=== PATIENT | male | born 1985 | race Caucasian/White ===

== ENCOUNTER 2020-10-20 23:47 | Observation (INO) | payer OTHER ==
[~2020-10-20] VITALS: Ht 182.9 cm; Wt 97.3 kg
[~2020-10-20 23:47] MED LIST: ALBUTEROL2.5 MG/3 M INH; TAMIFLU 75 MG C75 MG PO
[2020-10-21 00:32] LABS: HEMOGLOBIN 15.8 gm/dl (14.0-17.5); RED BLOOD COUNT 5.06 M/UL (4.20-5.50); WHITE BLOOD COUNT 16.2 K/UL (4.5-11.0)
[2020-10-21 00:54] LABS: BUN/CREATININE RATIO 9 (0-10)
[2020-10-21] MEDS ORDERED: PRILOSEC OTC20 MG PO (04:53)
[2020-10-21] MEDS ORDERED: NEBULIZER UNIT INH (13:36)
[2020-10-21] MEDS ORDERED: IPRAT-ALBUT 0.5-3 ML NEB (13:36)
[2020-10-21] MEDS ORDERED: MEDROL DOSEPAK 24 MG PO (13:36)
[2020-10-21] MEDS ORDERED: PROAIR HFA8.5 GM INH (13:36)
== END 2020-10-21 14:46 | disposition home or self-care (01) ==
LOC: ER1 23:47 → MED SURG 4 10-21 03:37 → CDU 10-21 03:37 → MED SURG 4 10-21 04:42
PROVIDERS: ADMIT Family Medicine
DX: J45.901 Unspecified asthma with (acute) exacerbation (principal); J20.9 Acute bronchitis, unspecified; J96.01 Acute respiratory failure with hypoxia; K21.9 Gastro-esophageal reflux disease without esophagitis; F17.210 Nicotine dependence, cigarettes, uncomplicated; Z20.822 Contact with and (suspected) exposure to COVID-19; Z79.899 Other long term (current) drug therapy; Z88.0 Allergy status to penicillin
CPT/HCPCS: 0240U; 36600; 71045; 80053; 82550; 82553; 82803; 83605; 83874; 84484; 85025; 85379; 85610; 85730; 87040; 94640; 94664; 94760; 96374; 99285; G0378; J0456; J1100; J2920; J7030; Q9967

== ENCOUNTER 2021-04-10 06:45 | Emergency (ER) | payer OTHER ==
[~2021-04-10 06:45] MED LIST changes: +IPRAT-ALBUT 0.5-3 ML NEB; +MEDROL DOSEPAK 24 MG PO; +NEBULIZER UNIT INH; +PRILOSEC OTC20 MG PO; +PROAIR HFA8.5 GM INH
[2021-04-10 08:07] LABS: HEMOGLOBIN 14.8 gm/dl (14.0-17.5); RED BLOOD COUNT 5.03 M/UL (4.20-5.50); WHITE BLOOD COUNT 12.4 K/UL (4.5-11.0)
[2021-04-10 08:40] LABS: BUN/CREATININE RATIO 10 (0-10)
[2021-04-10] MEDS ORDERED: PREDNISONE 20 M20 MG PO (09:49)
== END 2021-04-10 10:11 | disposition home or self-care (01) ==
LOC: ER1 06:45
PROVIDERS: Student in an Organized Health Care Education/Training Program
DX: J45.901 Unspecified asthma with (acute) exacerbation (principal); F17.200 Nicotine dependence, unspecified, uncomplicated; Z88.0 Allergy status to penicillin; Z20.822 Contact with and (suspected) exposure to COVID-19
CPT/HCPCS: 71045; 80053; 82550; 82553; 83874; 84484; 85025; 85379; 93005; 94664; 96374; 99285; J1100; J7030; U0002

== ENCOUNTER 2022-01-26 14:53 | Emergency (ER) | payer OTHER ==
[~2022-01-26 14:53] MED LIST changes: +PREDNISONE 20 M20 MG PO
[2022-01-26 16:42] LABS: RED BLOOD COUNT 5.23 M/UL (4.20-5.50); WHITE BLOOD COUNT 13.6 K/UL (4.5-11.0)
[2022-01-26 17:07] LABS: BUN/CREATININE RATIO 14 (0-10)
[2022-01-26] MEDS ORDERED: KETOCONAZOLE10 GM TOP (18:44)
== END 2022-01-26 19:04 | disposition home or self-care (01) ==
LOC: ER1 14:53
PROVIDERS: Physician Assistant Medical
DX: T69.022A Immersion foot, left foot, initial encounter (principal); T69.021A Immersion foot, right foot, initial encounter; E86.0 Dehydration; Z88.0 Allergy status to penicillin; X58.XXXA Exposure to other specified factors, initial encounter
CPT/HCPCS: 80053; 81001; 85025; 99283